=== PATIENT | male | born 1970 ===

== ENCOUNTER 2024-11-05 17:36 | Emergency (ER) | payer OTHER, SELFPAY ==
[2024-11-05] VITALS (20 sets, daily range): BP systolic 152–184; BP diastolic 7–97; PULSE 76–95; RESP 10–23; TEMP 36.6; O2SAT 96–98
--- NOTE | 2024-11-05 17:30 | RT.EKG_ITS ---
APPROVED REPORT Exam: Resting ECG Reason for Exam: CVA s/s Patient Location: E HR:83 bpm ECG Measurements Heart Rate 83 AXIS WY 164 P 42 QRSd 83 QRS 50 QT 352 T 27 QTc 414 Conclusion Sinus rhythm...normal P axis, V-rate 60- 99
--- NOTE | 2024-11-05 17:45 | ED.GENADUL_ITS ---
Discharge Plan Disposition Patient Disposition: Home Condition: Stable Discharge Details Clinical Impression: Branch's palsy Primary Care Provider: Radha,Local ED Provider: Farooq Hall Home Meds and New Rx's Prescriptions: New valacyclovir 1 gram tablet 1,000 mg PO TID 7 Days Qty: 21 0RF prednisone 20 mg tablet 60 mg PO DAILY 6 Days Qty: 18 0RF Continued omeprazole 40 mg capsule,delayed release(DR/EC) 40 mg PO DAILY lisinopril 10 mg tablet 10 mg PO DAILY ezetimibe 10 mg tablet 10 mg PO DAILY fluoxetine 10 mg capsule 10 mg PO DAILY tadalafil [Cialis] 5 mg tablet 5 mg PO DAILY metformin 1,000 mg tablet 1,000 mg PO DAILY pravastatin 40 mg tablet 40 mg PO DAILY fluticasone propionate [24 Hour Allergy Relief] 50 mcg/actuation spray,suspension 2 spray intranasal DAILY PRN Rx Instructions: administer into each nostril insulin lispro [Humalog [place] KwikPen U-100] 100 unit/mL insulin pen, half- unit 1 sliding scale dose subcut USEASDIRECTD insulin glargine [Basaglar KwikPen U-100 Insulin] 100 unit/mL (3 mL) insulin pen 1 unit subcut QPM Discharge Instructions Instructions: Branch's palsy, Prednisone, Valacyclovir Additional Instructions: You were seen in the emergency department for your left-sided facial droop, you are seen by telemetry neurology at [facility] and both myself and Dr. Sheriff agree that you are likely having a Branch's palsy not a stroke, it would be beneficial to take a full-strength aspirin each day but the definitive prophylactic is valacyclovir to worsening symptoms from possible varicella or HSV infection, typically we give this with prednisone which can affect your blood sugars. You may need to check your blood sugar level twice as often or more, you may need to make constant adjustments to the amount of units based on these numbers with your insulin and possibly call in consult with your PCP. Please picker packer your medications tomorrow at [facility] in [place], return for any fevers, worsening facial paralysis, spreading disseminated rash to entire body, palpitations, chest pain, altered mental status or other emergent concern. HPI General Date/Time Provider Initiated Documentation: 11/05/24 17:44 . 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 Quality described as facial droop, and some unsteady gait, no radiation to motor weakness, slurred speech, chest pain, palpitations, fever, neck stiffness, visual changes, hemiparesis. Severity is described as mild. Palliating factors include nothing specific attempted. Provoking factors include nothing specific. Events leading up to the incident/Associated Symptoms: Patient is unsure if he's ever had chicken pox. Patient not anticoagulated. Related Data Home Medications ?Medication ?Instructions ?Recorded ?Confirmed ezetimibe 10 mg tablet 10 mg PO DAILY 11/05/24 11/05/24 fluoxetine 10 mg capsule 10 mg PO DAILY 11/05/24 11/05/24 fluticasone propionate 50 2 spray intranasal DAILY PRN 11/05/24 11/05/24 mcg/actuation nasal spray,suspension (24 Hour Allergy Relief) insulin glargine 100 unit/mL (3 1 unit subcut QPM 11/05/24 11/05/24 mL) subcutaneous pen (Basaglar KwikPen U-100 Insulin) insulin lispro 100 unit/mL 1 sliding scale dose subcut 11/05/24 11/05/24 subcutaneous half-unit pen USEASDIRECTD (Humalog Hugo KwikPen (U-100)) lisinopril 10 mg tablet 10 mg PO DAILY 11/05/24 11/05/24 metformin 1,000 mg tablet 1,000 mg PO DAILY 11/05/24 11/05/24 omeprazole 40 mg capsule,delayed 40 mg PO DAILY 11/05/24 11/05/24 release pravastatin 40 mg tablet 40 mg PO DAILY 11/05/24 11/05/24 prednisone 20 mg tablet 60 mg (3 x 20 mg) PO DAILY 6 days 11/05/24 #18 tabs tadalafil 5 mg tablet (Cialis) 5 mg PO DAILY 11/05/24 11/05/24 valacyclovir 1 gram tablet 1,000 mg PO TID 7 days #21 tabs 11/05/24 Previous Rx's ?Medication ?Instructions ?Recorded prednisone 20 mg tablet 60 mg (3 x 20 mg) PO DAILY 6 days 11/05/24 #18 tabs valacyclovir 1 gram tablet 1,000 mg PO TID 7 days #21 tabs 11/05/24 Allergies Allergy/AdvReac Type Severity Reaction Status Date / Time No Known Allergies Allergy Unverified 11/05/24 17:44 General Stated Complaint: CVA/TIA CHICHI: 3 Review of Systems All systems reviewed & are unremarkable except as noted in HPI and below Exam Narrative Exam Narrative: GENERAL APPEARANCE: Well-nourished, non-toxic, awake and alert, atraumatic, no acute distress. SKIN: Warm, pink, dry, intact, without rashes/lesions/ulcerations. HEAD: Normocephalic, atraumatic, normal hair distribution for gender/age. EYES: Normal conjunctiva, no exudates on lids/lashes, EOMs intact without nystagmus ENT: Nares patent, no circumoral cyanosis, no facial swelling NECK: Supple, trachea midline, painless cervical ROM. LUNGS/CHEST: Lungs CTA bilaterally- no rhonchi/rales/wheezes diffusely, non- labored respirations, normal A/P diameter, symmetrical expansion, no chest wall deformity HEART (CV/PV): Regular rate and rhythm without murmur, no peripheral edema, no JVD. ABDOMEN: Soft, non-distended, no guarding. MSK: Normal ROM, no swelling/deformity to bilateral UEs or LEs, moving all extremities without weakness, no cyanosis, spine midline without tenderness, normal curvature. NEURO: Mental Status AAOx4 - alert to person, place, time, events R sided facial droop with some reduced movement to R forehead/eyebrow, FNF WNL, heel-mariano WNL Motor: No focal weakness - strength 5/5 in bilateral UEs and LEs, proximal and distal, symmetric. Sensory: sensation intact to light touch globally. Gait mildly ataxic with heel-to-toe [id number], Romberg absent PSYCH: euthymic, cooperative, pleasant, appropriate speech Course Vital Signs Vital signs: Vital Signs Temperature 36.6 C 11/05/24 17:39 Pulse 83 11/05/24 17:39 Respiratory Rate 16 11/05/24 17:39 Blood Pressure 158/97 H 11/05/24 17:39 Pulse Oximetry 98 11/05/24 17:39 Temperature 36.6 C 11/05/24 17:39 Pulse 83 11/05/24 17:39 Respiratory Rate 16 11/05/24 17:39 Blood Pressure 158/97 H 11/05/24 17:39 Pulse Oximetry 98 11/05/24 17:39 Pain Level 0 11/05/24 17:39 Medical Decision Making This dictation utilizes wdiky-ur-wyuv dictation software and may contain unedited grammatical errors. 54 year-old male presents to ED today by POV/ambulating with his son with a chief complaint of headache on Tuesday night, woke up Tuesday with facial droop, with history of stress-related Branch's Palsy with onset Tuesday, last known well Tuesday night before bed. Quality described as facial droop, and some unsteady gait, no radiation to motor weakness, slurred speech, chest pain, palpitations, fever, neck stiffness, visual changes, hemiparesis. Severity is described as mild. Palliating factors include nothing specific attempted. Provoking factors include nothing specific. Events leading up to the incident/Associated Symptoms: Patient is unsure if he's ever had chicken pox. Patients' medical history: t2DM. Family and social history: Speaks [place] (son as archaeology professor), visiting his son in the area until November. Pertinent exam findings / vital signs include pterygium to L eye medial aspect, visual khan intact, facial sensory deficit and droop R side, no motor deficits, benign cardiopulmonary status, facial paralysis does have some eyebrow involvement, but not completely affected. Fluorscein eye exam shows no dendritic lesions. Differential / pathologies of concern include CVA, TIA, Rolando-Darby Syndrome, Branch's Palsy. Diagnostic studies of: - CBC, CMP, troponin, TSH, tick and Lyme panel, CTA brain and neck, chest x-ray, EKG. - CBC is unremarkable, mild anemia nonspecific - CMP shows mildly low sodium - Troponin negative - TSH within normal limits - X-ray chest shows no acute pathology - CT of the brain and neck shows no acute pathology - EKG shows no ischemic changes or arrhythmia Interventions of: -TeleNeuro consult, Empiric valacyclovir & prednisone for Branch's palsy. ED Course/Assessment/Plan: 54-year-old male presents with right-sided facial droop Tuesday morning upon awakening, had a headache the night before, tick and Lyme panel pending but otherwise unremarkable workup, negative CTA, seen by teleneurology and recommends starting prophylactic treatment for Branch's palsy with Valtrex, I did discuss with neurology the option of adding prednisone as an adjunct, the patient is diabetic, I discussed this with both he and his son and they are comfortable with very frequent blood sugar checks and adjusting their insulin accordingly and will return for any severely symptomatic or uncontrolled symptoms, he may have an element of orthostatic hypotension and postural hypotension with his unsteadiness but he is otherwise neuro intact.. Findings not consistent with stroke, [place] Darby syndrome, HSV ophthalmicus, Lyme carditis, intracranial hemorrhage, sepsis, meningismus. Disposition of Branch's Palsy. Patient verbalized understanding of the plan and return to ED criteria and engaged in shared decision making. Medical Records Medical records reviewed: Yes I reviewed the patient's medical records. Imaging Data Radiologic Study: Attestation: I personally reviewed and interpreted this imaging study as follows: Imaging: CT Scan Radiologist's impression: EXAM: CT BRAIN NECK CTA CLINICAL HISTORY: ataxia, L sided facial droop - onset sat night. TECHNIQUE: Imaging Protocol: Axial CT angiography was performed with multi- slice acquisition and multi-planar and/or 3D reconstructions. CONTRAST MATERIAL: Intravenous: Omnipaque 350 Contrast volume:70 mL COMPARISON: No exams were available for comparison FINDINGS: CTA Neck W: Aortic arch anatomy: There is independent origin of the left vertebral artery off the aortic arch, this instead of conventional origin of the left subclavian artery. No significant narrowing of the great vessels off the aortic arch. No evidence of dissection flap in the aortic arch. Anterior circulation: Both common carotid arteries ascend with normal luminal diameters. At the level the carotid bulbs and proximal internal carotid arteries there is mild calcified plaque on the left side but without hemodynamically significant stenosis. Less than 10 percent narrowing. There is also a small calcified plaque on the posterior wall of the proximal left ICA but without significant stenosis at this level. There is no significant plaque evident at the level the right carotid bulb and proximal right ICA. Both internal carotid arteries in the upper neck are widely patent and exhibit straight line non tortuous flow. There also patent within the skull base-carotid canals. Posterior circulation: The right vertebral artery is dominant and there is no significant stenosis at its origin off of the right subclavian artery. It exhibits a luminal diameter of 3 mm in the foramen transversarium and at the skull base is the main contributor to the formation of the basilar artery. The left vertebral artery is a smaller vessel which ascends with luminal diameter of 2 mm and terminates at the skull base as the left posterior inferior cerebellar. It does make et tube like contribution to the formation of the basilar artery at the skull base. CTA Brain W: Anterior circulation: Both internal carotid arteries are patent in the skull base-carotid canals as well as within the cavernous sinuses. The supraclinoid aspects of the ICAs are patent. Both A1 segments are patent as are the anterior cerebral arteries and there is no evidence of aneurysm at the level of the anterior communicating artery. Both middle cerebral arteries are patent with no evidence of significant stenosis nor intraluminal thrombus. There also no aneurysms of these vessels. Posterior circulation: The basilar artery ascends in the midline as somewhat thin vessel. Distally it gives off patent bilateral superior cerebellar arteries. The posterior cerebral arteries are supplied by posterior communicating arteries on both sides the skqsqd-ds-Yerttk/persistent circulation. Posterior cerebral arteries are patent. There is no evidence of aneurysm at the tip of the basilar artery nor elsewhere in the cealsf-zx-Gxgdmi. CT BRAIN: There is no evidence of intracranial hemorrhage, mass effect, or shift of midline structures. There are no extra-axial fluid collections. Ventricles are not enlarged or shifted. There are no ring enhancing lesions in the brain and no abnormal meningeal enhancement. IMPRESSION: 1. Patent carotid arteries in the neck. No hemodynamically significant stenosis. 2. Patent vertebral arteries. The right vertebral artery is dominant 3. Patent intracranial arteries. The posterior cerebral arteries are fed by posterior communicating arteries on both sides the vjaxyu-cc-Ahljgf-persistent circulation. 4. No significant intracranial findings. Report called by myself to ER provider 11/05/2024 at 6:55 p.m. Radiologic Study #2: Attestation: I personally reviewed and interpreted this imaging study as follows: Imaging: X-Ray Radiologist's impression: EXAM: XR CHEST 1V IN DI DEPT CLINICAL HISTORY: dizziness. TECHNIQUE: 2D digital imaging was performed. COMPARISON: No exams were available for comparison FINDINGS: Single AP portable view. Heart size is upper normal. The mediastinum is not widened. Lungs are clear. No infiltrates nor obvious pleural effusions. IMPRESSION: No acute pulmonary findings on this single AP portable view of the chest. Lab Data Lab results reviewed: Yes I reviewed the patient's lab results. Labs: Laboratory Tests Range/Units 11/05/24 18:10 WBC (4.4-10.8) 10^3/uL 6.57 RBC (4.36-5.78) 10^6/uL 4.14 L Hgb (13.5-17.5) g/dL 12.8 L Hct (40.0-50.0) % 35.4 L MCV (80-95) fL 86 MCH (27.0-33.0) pg 30.9 MCHC (32.0-36.0) % 36.2 H RDW (11.8-14.1) % 12.3 Plt Count (130-400) 10^3/uL 141 MPV (8.0-11.0) fL 10.0 Immature Gran % % 0.2 Neutrophils % % 60.1 Lymphocytes % % 33.6 Monocytes % % 4.7 Eosinophils % % 1.1 Basophils % % 0.3 Nucleated RBC % (0.0-0.3) % 0.0 Absolute Neutrophils (1.2-6.7) 10^3/uL 3.95 Absolute Lymphocytes (1.2-3.4) 10^3/uL 2.21 Absolute Monocytes (0.1-0.8) 10^3/uL 0.31 Absolute Eosinophils (0.0-0.7) 10^3/uL 0.07 Absolute Basophils (0.0-0.2) 10^3/uL 0.02 Sodium (136-145) mmol/L 133 L Potassium (3.5-5.1) mmol/L 4.5 Chloride (98-107) mmol/L 100 Carbon Dioxide (21.0-32.0) mmol/L 26.4 Anion Gap (3-11) mmol/L 6.6 BUN (7-18) mg/dL 18 Creatinine (0.70-1.30) mg/dL 1.4 H Est GFR (CKD-EPI 2020) (mL/min/1.73m2) 59.36 Glucose (74-106) mg/dL 190 H Calcium (8.5-10.1) mg/dL 8.8 Total Bilirubin (0.2-1.0) mg/dL 1.3 H AST (15-37) U/L 20 ALT (16-63) U/L 30 Alkaline Phosphatase (46-116) U/L 107 Troponin I (<or=76) ng/L 4 Total Protein (6.4-8.2) g/dL 7.5 Albumin (3.4-5.0) g/dL 4.1 TSH (0.36-3.74) uIU/mL 2.01 Quality:SDOH Health Related Social Needs: No Data to Display PFSH All Active Problems (Updated 11/05/24 @ 21:12 by TELLY Vega) Branch's palsy (Acute) Social History Smoking/Tobacco Use Status: Former Tobacco Use Smoking risk assessment performed?: Yes Alcohol Intake: current Alcohol Intake frequency: holidays/special occasions only Drug use: Never Substance use type: does not use Housing: house Do you feel safe at home: Yes Do you feel safe in your relationship?: Yes
--- NOTE | 2024-11-05 17:57 | DI.RAD_ITS ---
Exam(s) XR CHEST 1V IN DI DEPT EXAM: XR CHEST 1V IN DI DEPT CLINICAL HISTORY: dizziness. TECHNIQUE: 2D digital imaging was performed. COMPARISON: No exams were available for comparison FINDINGS: Single AP portable view. Heart size is upper normal. The mediastinum is not widened. Lungs are clear. No infiltrates nor obvious pleural effusions. IMPRESSION: No acute pulmonary findings on this single AP portable view of the chest. DATA REPOSITORY: RADIATION DOSE DELIVERED:
--- NOTE | 2024-11-05 18:00 | DI.CT_ITS ---
Exam(s) CT BRAIN NECK CTA EXAM: CT BRAIN NECK CTA CLINICAL HISTORY: ataxia, L sided facial droop - onset sat night. TECHNIQUE: Imaging Protocol: Axial CT angiography was performed with multi-slice acquisition and mu lti-planar and/or 3D reconstructions. CONTRAST MATERIAL: Intravenous: Omnipaque 350 Contrast volume:70 mL COMPARISON: No exams were available for comparison FINDINGS: CTA Neck W: Aortic arch anatomy: There is independent origin of the left vertebral artery off the aortic arch, th is instead of conventional origin of the left subclavian artery. No significant narrowing of the gre at vessels off the aortic arch. No evidence of dissection flap in the aortic arch. Anterior circulation: Both common carotid arteries ascend with normal luminal diameters. At the level the carotid bulbs and proximal internal carotid arteries there is mild calcified plaque on the left side but without hemodynamically significant stenosis. Less than 10 percent narrowing. There is also a small calcified plaque on the posterior wall of the proximal left ICA but without sig nificant stenosis at this level. There is no significant plaque evident at the level the right carot id bulb and proximal right ICA. Both internal carotid arteries in the upper neck are widely patent a nd exhibit straight line non tortuous flow. There also patent within the skull base-carotid canals. Posterior circulation: The right vertebral artery is dominant and there is no significant stenosis at its origin off of the right subclavian artery. It exhibits a luminal diameter of 3 mm in the foramen transversarium and at the skull base is the main contributor to the formation of the basilar artery. The left vertebral artery is a smaller vessel which ascends with luminal diameter of 2 mm and termina yael at the skull base as the left posterior inferior cerebellar. It does make et tube like contribut ion to the formation of the basilar artery at the skull base. CTA Brain W: Anterior circulation: Both internal carotid arteries are patent in the skull base-carotid canals as well as within the cave rnous sinuses. The supraclinoid aspects of the ICAs are patent. Both A1 segments are patent as are the anterior cer ebral arteries and there is no evidence of aneurysm at the level of the anterior communicating artery . Both middle cerebral arteries are patent with no evidence of significant stenosis nor intraluminal th rombus. There also no aneurysms of these vessels. Posterior circulation: The basilar artery ascends in the midline as somewhat thin vessel. Distally it gives off patent bila teral superior cerebellar arteries. The posterior cerebral arteries are supplied by posterior communicating arteries on both sides the ci jbqc-is-Cvlxxv/persistent circulation. Posterior cerebral arteries are patent. There is no evidence of aneurysm at the tip of the basilar artery nor elsewhere in the onjkie-nq-Fzbr is. CT BRAIN: There is no evidence of intracranial hemorrhage, mass effect, or shift of midline structures. There are no extra-axial fluid collections. Ventricles are not enlarged or shifted. There are no ring enh ancing lesions in the brain and no abnormal meningeal enhancement. IMPRESSION: 1. Patent carotid arteries in the neck. No hemodynamically significant stenosis. 2. Patent vertebral arteries. The right vertebral artery is dominant 3. Patent intracranial arteries. The posterior cerebral arteries are fed by posterior communicating arteries on both sides the cfuubq-gh-Bxnglq-persistent circulation. 4. No significant intracranial findings. Report called by myself to ER provider 11/05/2024 at 6:55 p.m. RADIATION DOSE DELIVERED: 2,149.18mGy.cm Total DLP DATA REPOSITORY: All CT scans at this facility are submitted to the National Radiology Data Registry (NRDR) Dose Index Registry (DIR) with the [employer] (A[employer]). RADIATION OPTIMIZATION: All CT scans at this facility use at least one of these dose optimization te chniques: automated exposure control; mA and/or kV adjustment per patient size (includes targeted exa ms where dose is matched to clinical indication); or iterative reconstruction.
[2024-11-05 18:19] LABS: Abs Immature Grans 0.01 10^3/uL (0.0-0.06); Absolute Basophil Count 0.02 10^3/uL (0.0-0.2); Absolute Eosinophil Count 0.07 10^3/uL (0.0-0.7); Absolute Lymphocyte Count 2.21 10^3/uL (1.2-3.4); Absolute Monocyte Count 0.31 10^3/uL (0.1-0.8); Absolute Neutrophil Count 3.95 10^3/uL (1.2-6.7); Basophils % 0.3 %; Eosinophils % 1.1 %; HCT 35.4 % (40.0-50.0); HGB 12.8 g/dL (13.5-17.5); Immature Grans % 0.2 %; Lymphocytes % 33.6 %; MCH 30.9 pg (27.0-33.0); MCHC 36.2 % (32.0-36.0); MCV 86 fL (80-95); Monocytes % 4.7 %; Neutrophils % 60.1 %; Platelet Count 141 10^3/uL (130-400); RBC 4.14 10^6/uL (4.36-5.78); RDW 12.3 % (11.8-14.1); RDW-SD 37.5 fL; WBC 6.57 10^3/uL (4.4-10.8)
[2024-11-05] MEDS: Omnipaque 350 MG/ML 100 ML BTL IJ (18:30)
[2024-11-05] MEDS: Normal Saline - Diluent 50 ML VIAL IJ (18:32)
[2024-11-05 18:50] LABS: ALT 30 U/L (16-63); AST 20 U/L (15-37); Albumin 4.1 g/dL (3.4-5.0); Alkaline Phosphatase 107 U/L (46-116); Anion Gap 6.6 mmol/L (3-11); BUN 18 mg/dL (7-18); Bilirubin, Total 1.3 mg/dL (0.2-1.0); CO2 26.4 mmol/L (21.0-32.0); CREATININE 1.4 mg/dL (0.70-1.30); Calcium 8.8 mg/dL (8.5-10.1); Chloride 100 mmol/L (98-107); Estimated GFR 59.36 (mL/min/1.73m2); Glucose 190 mg/dL (74-106); Potassium 4.5 mmol/L (3.5-5.1); Sodium 133 mmol/L (136-145); TSH (W/Ref FT4) 2.01 uIU/mL (0.36-3.74); Total Protein 7.5 g/dL (6.4-8.2); Troponin I 4 ng/L (<or=76)
[2024-11-05] MEDS: Tetracaine 0.5% 4 ML BTL OP (19:45)
[2024-11-05] MEDS: Fluorescein STRIPS 100/BOX 1 MG OP (19:51)
[2024-11-05] MEDS: valACYclovir 1,000 MG TAB 1000 MG PO (21:58)
[2024-11-05] MEDS: predniSONE 20 MG TAB 60 MG PO (21:58)
[2024-11-07 09:46] LABS: Lyme Ab w Rflx to Lyme Confirm Negative (Negative)
[2024-11-09 01:35] LABS: Anaplasma phagocytophilum Negative (Negative); B. miyamotoi PCR Negative (Negative); Babesia divergens/MO-1 Negative (Negative); Babesia duncani Negative (Negative); Babesia microti Negative (Negative); Ehrlichia chaffeensis Negative (Negative); Ehrlichia ewingii/canis Negative (Negative); Ehrlichia muris eauclairensis Negative (Negative)
== END 2024-11-05 22:05 | disposition home or self-care (01) ==
PROVIDERS: Emergency Provider Physician Assistant
DX: G51.0 Bell's palsy (principal); I10 Essential (primary) hypertension
CPT/HCPCS: 99284; 99285; 36416; 82962; 70496; 70498; 80053; 87798; 93005; 71045; 84443; 84484; 85025; 86618; 93010; J3490; J7512